=== PATIENT | female | born 1960 | race Two or more races ===

== ENCOUNTER 2017-02-21 01:44 | Emergency (ER) | payer MEDICAID ==
[~2017-02-21] VITALS: Ht 160 cm; Wt 70.3 kg
--- NOTE | 2017-02-21 02:00 | NUR ---
to bed 1 ambulatory c/o epigastric pain x5 days, R arm numbness, R leg pain x4 days. pt aaox4 no acute distress noted, resp even and unlabored. pt appears very anxious. place pt on cardiac monitoring, continuous pox. pending er md coronel.
[2017-02-21] MEDS ORDERED: IV SET PRIMARY 1 EA INFUS.SET MC ONE (03:15)
[2017-02-21] MEDS ORDERED: ONDANSETRON HCL/PF 4 MG/2 ML VIAL ONE (03:15)
[2017-02-21] MEDS ORDERED: IV NS 0.9% 1,000 ML ONE (03:15)
[2017-02-21] MEDS ORDERED: HYDROMORPHONE 1 MG/1 ML DISP.SYRIN ONE (03:15)
[2017-02-21 03:27] LABS: BASOPHILS % (AUTO) 0.4 % (0.0-2.0); EOSINOPHILS # (AUTO) 0.2 /CMM (0.0-0.7); EOSINOPHILS % (AUTO) 3.3 % (0.0-6.0); HEMATOCRIT 38 % (33-45); HEMOGLOBIN 12.9 g/dL (11.5-14.8); LYMPHOCYTES # (AUTO) 3.2 /CMM (0.8-4.8); LYMPHOCYTES % (AUTO) 45.7 % (20.0-44.0); MEAN CORPUSCULAR HEMOGLOBIN 30 PG (26.0-33.0); MEAN CORPUSCULAR HGB CONC 34 g/dl (31.0-36.0); MEAN CORPUSCULAR VOLUME 88 fL (82-100); MONOCYTES # (AUTO) 0.4 /CMM (0.1-1.30); MONOCYTES % (AUTO) 5.6 % (2.0-12.0); NEUTROPHILS # (AUTO) 3.2 /CMM (1.8-8.9); PLATELET COUNT (AUTO) 272 /CMM (150-450); RDW COEFFICIENT OF VARIATION 12.9 (11.5-15.0); RED BLOOD CELL COUNT(AUTO) 4.31 MIL/uL (4.0-5.2); WHITE BLOOD COUNT (AUTO) 7.1 K/uL (4.3-11.0)
--- NOTE | 2017-02-21 03:29 | NUR ---
pt transported to radiology for ct abd/pelvis.
[2017-02-21] MEDS ORDERED: ONDANSETRON HCL/PF 4 MG/2 ML VIAL IVP ONE (03:30)
[2017-02-21] MEDS ORDERED: HYDROMORPHONE INJ 2 MG/ML DISP.SYRIN IV ONE (03:30)
[2017-02-21] MEDS ORDERED: IV NS 0.9% 1,000 ML BAG IV ONE (03:30)
[2017-02-21 03:45] LABS: APPEARANCE,URINE CLEAR (CLEAR); BILIRUBIN,URINE NEGATIVE (NEGATIVE); BLOOD, URINE 1+ Ery/uL (NEGATIVE); COLOR,URINE YELLOW (YELLOW); KETONES,URINE NEGATIVE (NEGATIVE); LEUKOCYTE ESTERASE ,URINE NEGATIVE (NEGATIVE); NITRITE, URINE NEGATIVE (NEGATIVE); PROTEIN,URINE NEGATIVE (NEGATIVE); UGLUCOSE NEGATIVE (NEGATIVE); UROBILINOGEN,URINE 0.2 EU/dL (0.2)
[2017-02-21 03:45] LABS: INR 0.96 (0.87-1.13); PROTHROMBIN TIME 10.2 SECS (9.5-12.7)
[2017-02-21 03:48] LABS: ADD URINE CULTURE NO; BACTERIA,URINE None seen /HPF (None Seen); SQUAMOUS EPITHELIAL CELL,UR Rare /HPF (None Seen); WBC,URINE 0-2 /HPF (0-3)
--- NOTE | 2017-02-21 03:50 | NUR ---
pt back from radiology. pending ct abd/pelvis result.
[2017-02-21 03:51] LABS: TROPONIN I < 0.017 ng/mL (0.00-0.056)
[2017-02-21 04:00] LABS: ALANINE AMINOTRANSFERASE 28 U/L (12-78); ALBUMIN 3.9 g/dL (3.4-5.0); ALKALINE PHOSPHATASE 82 U/L (46-116); ASPARTATE AMINOTRANSFERASE 31 U/L (15-37); BILIRUBIN,DIRECT 0.1 mg/dL (0.0-0.2); BILIRUBIN,TOTAL 0.6 mg/dL (0.2-1.0); CARBON DIOXIDE 27 mmol/L (21-32); CHLORIDE 109 mmol/L (98-107); CREATININE 0.7 mg/dL (0.6-1.3); GFR 87 mL/min (>60); GLUCOSE 105 mg/dL (74-106); LIPASE 178 U/L (73-393); POTASSIUM 4.5 mmol/L (3.5-5.1); SODIUM SERUM 143 mmol/L (136-145); TOTAL PROTEIN, SERUM 7.6 g/dL (6.4-8.2); UREA NITROGEN, BLOOD 13 mg/dL (7-18)
--- NOTE | 2017-02-21 04:24 | NUR ---
ayse valdes at bedside
--- NOTE | 2017-02-21 04:28 | NUR ---
noted Rac sl infiltrated, comfort measures done. er md aware.
[2017-02-21] MEDS ORDERED: ONDANSETRON 4 MG TAB.RAPDIS ONE (04:34)
[2017-02-21] MEDS ORDERED: FAMOTIDINE (20 MG) 20 MG TABLET ONE (04:34)
--- NOTE | 2017-02-21 04:58 | NUR ---
IV removed. Catheter intact and site benign. Pressure and 4x4 applied to site. No bleeding noted. Patient discharged to home in stable condition. Written and verbal after care instructions given. Patient verbalizes understanding of instruction. ambulatory with a steady gait. pt aaox4 no acute distress noted, resp even and unlabored. advice pt not to drive or operate any machinery due to pt was given narcotic medicine. pt verbalize understanding. pt family member at bedsdie to take pt home.
[2017-02-21] MEDS ORDERED: ONDANSETRON 4 MG TAB.RAPDIS SL ONE (05:00)
[2017-02-21] MEDS ORDERED: FAMOTIDINE (20 MG) 20 MG TABLET PO ONE (05:00)
[2017-02-21 05:01] VITALS: BP 143/86
== END 2017-02-21 05:01 | disposition home or self-care (01) ==
LOC: ER 01:46
DX: R10.12 Left upper quadrant pain (principal); R10.31 Right lower quadrant pain; Z88.1 Allergy status to other antibiotic agents
CPT/HCPCS: 36415; 76705-TC; 80048-TC; 80076-TC; 81000-TC; 83690-TC; 84484-TC; 85025-TC; 85730-TC; A4606; J1170; J2405; J7030; Q0162; Z7610

== ENCOUNTER 2023-03-02 14:25 | Emergency (ER) | payer MEDICAID ==
[~2023-03-02] VITALS: Ht 160 cm; Wt 65.8 kg
--- NOTE | 2023-03-02 14:30 | NUR ---
SEEN BY DR. BROOKE
--- NOTE | 2023-03-02 14:35 | NUR ---
UA SENT BY ABENA HICKS RN
[2023-03-02] MEDS ORDERED: IV NS 0.9% 1,000 ML BAG IV ONE (15:30)
[2023-03-02] MEDS ORDERED: KETOROLAC TROMETHAMINE INJ 30 MG/ML VIAL IV ONE (15:30)
--- NOTE | 2023-03-02 15:45 | NUR ---
RECEIVED PT 63 yrs female came from home c/o LOWER BACK PAIN AND AND ABDOMINALE PAIN FOR 3 DAYS c/o UTI SYMPTOME
[2023-03-02] MEDS ORDERED: KETOROLAC TROMETHAMINE 15 MG/ML VIAL ONE (15:47)
--- NOTE | 2023-03-02 15:50 | NUR ---
INSERTED ANGO CATHETER G 20 ON LT AC BLOOD DROW AND SENT TO LAB
--- NOTE | 2023-03-02 16:20 | NUR ---
DINESES ANY ABDOMINALE PAIN AT THIS TIME
[2023-03-02 16:26] LABS: BASOPHILS % (AUTO) 0.5 % (0.0-2.0); EOSINOPHILS % (AUTO) 1.5 % (0.0-6.0); HEMATOCRIT 40 % (33-45); LYMPHOCYTES # (AUTO) 2.4 K/uL (0.8-4.8); LYMPHOCYTES % (AUTO) 30.4 % (20.0-44.0); MEAN CORPUSCULAR HGB CONC 33 g/dl (31.0-36.0); MEAN CORPUSCULAR VOLUME 91 fL (82-100); MONOCYTES # (AUTO) 0.4 K/uL (0.1-1.30); MONOCYTES % (AUTO) 5.5 % (2.0-12.0); NEUTROPHILS % (AUTO) 62.1 % (43.0-81.0); PLATELET COUNT (AUTO) 271 K/uL (150-450)
[2023-03-02 16:53] LABS: BILIRUBIN,URINE NEGATIVE (NEGATIVE); COLOR,URINE YELLOW (YELLOW); LEUKOCYTE ESTERASE ,URINE 1+ (NEGATIVE); NITRITE, URINE POSITIVE (NEGATIVE); PH,URINE 6.5 (5.0-8.0); PROTEIN,URINE NEGATIVE (NEGATIVE); UGLUCOSE TRACE mg/dL (NEGATIVE)
[2023-03-02 17:13] LABS: CALCIUM, SERUM 9.7 mg/dL (8.5-10.1); CREATININE 0.9 mg/dL (0.6-1.3); POTASSIUM 3.6 mmol/L (3.5-5.1)
[2023-03-02] MEDS ORDERED: CEPH500T PO (17:30)
[2023-03-02 17:40] LABS: RBC,URINE 21-50 /HPF (0-2)
[2023-03-02 17:41] LABS: BACTERIA,URINE 1+ /HPF (None Seen); SQUAMOUS EPITHELIAL CELL,UR 0-2 /HPF (None Seen)
--- NOTE | 2023-03-02 17:45 | NUR ---
IV removed. Catheter intact and site benign. Pressure and 4x4 applied to site. No bleeding noted.
--- NOTE | 2023-03-02 17:50 | NUR ---
Patient discharged to home in stable condition. Written and verbal after care instructions given. Patient verbalizes understanding of instruction.
[2023-03-02 18:21] VITALS: BP 156/82
== END 2023-03-02 18:23 | disposition home or self-care (01) ==
LOC: ER 14:34
DX: N39.0 Urinary tract infection, site not specified (principal); Z88.1 Allergy status to other antibiotic agents
CPT/HCPCS: 99285; 74176; 96374; 96361; 85025; 80048; 87086; 81001; 36415; J7030; J1885